=== PATIENT | female | born 1960 | race Caucasian/White ===

== ENCOUNTER 2021-08-24 19:34 | Emergency (ER) | payer BC ==
--- NOTE | 2021-08-24 19:45 | EDM.PDOC ---
ED HPI GENERAL MEDICAL PROBLEM - General Chief Complaint: General Stated Complaint: FAINTED Time Seen by Provider: 08/24/21 19:42 Source of Information: Reports: Patient History Limitations: Reports: No Limitations - History of Present Illness INITIAL COMMENTS - FREE TEXT/NARRATIVE: Patient is a 60-year-old female who presents today for syncope episode. Patient was at work when she told her coworkers that she felt lightheaded and she passed out. Patient denied hitting her head but coworkers advised that she may have bumped her head. She is awake and alert currently in her baseline she denies any pain to her head or neck or any extremities. States that she has been feeling sick for the past few days has been cold-like symptoms but tested negative she has been having decreased p.o. intake and not drinking enough water per the patient. She denies any chest pain abdominal pain vomiting or other complaints. Head Pain Score (Numeric/FACES): 3 - Related Data Allergies Allergy/AdvReac Type Severity Reaction Status Date / Time No Known Allergies Allergy Verified 08/24/21 19:45 Home Meds: Home Meds Omeprazole 20 mg PO DAILY 07/29/16 [History] Valsartan 1 tab PO DAILY 06/11/18 [History] buPROPion HCL [Wellbutrin Xl] 1 tab PO DAILY 06/11/18 [History] amLODIPine [Norvasc] 10 mg PO DAILY 08/24/21 [History] Past Medical History HEENT History: Reports: Impaired Vision, Other (See Below) Other HEENT History: wears glasses Cardiovascular History: Reports: High Cholesterol, Hypertension Gastrointestinal History: Reports: GERD Psychiatric History: Reports: Anxiety, Depression - Past Surgical History GI Surgical History: Reports: EGD Social & Family History - Family History Family Medical History: No Pertinent Family History ED ROS GENERAL - Review of Systems Review Of Systems: See Below Constitutional: Reports: No Symptoms HEENT: Reports: No Symptoms Respiratory: Reports: No Symptoms Cardiovascular: Reports: Syncope Endocrine: Reports: No Symptoms GI/Abdominal: Reports: No Symptoms : Reports: No Symptoms Musculoskeletal: Reports: No Symptoms Skin: Reports: No Symptoms Neurological: Reports: No Symptoms Psychiatric: Reports: No Symptoms Hematologic/Lymphatic: Reports: No Symptoms Immunologic: Reports: No Symptoms ED EXAM, GENERAL - Physical Exam Exam: See Below Exam Limited By: No Limitations General Appearance: Alert, WD/WN, No Apparent Distress Eye Exam: Bilateral Eye: EOMI, PERRL Head: Atraumatic, Normocephalic Respiratory/Chest: No Respiratory Distress, Lungs Clear, Normal Breath Sounds Cardiovascular: Normal Peripheral Pulses, Regular Rate, Rhythm GI/Abdominal: Normal Bowel Sounds, Soft, Non-Tender Extremities: Normal Inspection, Normal Range of Motion, Non-Tender Neurological: Alert, Oriented, CN II-XII Intact, Normal Cognition, Normal Gait #1 Interpretation EKG Date: 08/24/21 Time: 19:38 Rhythm: NSR Rate (Beats/Min): 79 ST-T: Normal Course - Vital Signs Last Recorded V/S: Last Vital Signs Temp 97.2 F 08/24/21 19:47 Pulse 94 08/24/21 21:17 Resp 16 08/24/21 21:17 BP 192/96 H 08/24/21 21:17 Pulse Ox 94 L 08/24/21 21:17 Orthostatic Blood Pressure [ 165/93 Standing] Orthostatic Blood Pressure [ 163/88 Sitting] Orthostatic Blood Pressure [ 164/90 Supine] - Orders/Labs/Meds Orders: Active Orders 24 hr Category Date Time Status Orthostatic Vital Signs [RC] ASDIRECTED Care 08/24/21 19:45 Active Labs: Laboratory Tests 08/24/21 08/24/21 08/24/21 Range/Units 19:40 19:40 20:42 WBC 12.98 H (4.0-11.0) K/uL RBC 5.16 (4.30-5.90) M/uL Hgb 15.6 (12.0-16.0) g/dL Hct 43.8 (36.0-46.0) % MCV 84.9 (80.0-98.0) fL MCH 30.2 (27.0-32.0) pg MCHC 35.6 (31.0-37.0) g/dL RDW Std Deviation 39.7 (28.0-62.0) fl RDW Coeff of Nora 13 (11.0-15.0) % Plt Count 337 (150-400) K/uL MPV 9.10 (7.40-12.00) fL Neut % (Auto) 55.8 (48.0-80.0) % Lymph % (Auto) 35.9 (16.0-40.0) % [place] % (Auto) 6.0 (0.0-15.0) % Eos % (Auto) 2.1 (0.0-7.0) % Baso % (Auto) 0.2 (0.0-1.5) % Neut # (Auto) 7.2 H (1.4-5.7) K/uL Lymph # (Auto) 4.7 H (0.6-2.4) K/uL [place] # (Auto) 0.8 (0.0-0.8) K/uL Eos # (Auto) 0.3 (0.0-0.7) K/uL Baso # (Auto) 0.0 (0.0-0.1) K/uL Nucleated RBC % 0.0 /100WBC Nucleated RBCs # 0 K/uL Sodium 136 (136-145) mmol/L Potassium 3.3 L (3.5-5.1) mmol/L Chloride 98 (98-107) mmol/L Carbon Dioxide 25.2 (21.0-32.0) mmol/L BUN 15 (7.0-18.0) mg/dL Creatinine 1.1 H (0.6-1.0) mg/dL Est Cr Clr Drug Dosing 45.55 mL/min Estimated GFR (MDRD) 50.8 ml/min Glucose 170 H (74-106) mg/dL Calcium 8.9 (8.5-10.1) mg/dL Phosphorus 2.5 L (2.6-4.7) mg/dL Magnesium 1.9 (1.8-2.4) mg/dL Total Bilirubin 1.4 H (0.2-1.0) mg/dL AST 11 L (15-37) IU/L ALT 22 (14-63) IU/L Alkaline Phosphatase 94 (46-116) U/L Creatine Kinase 79 (26-308) U/L Troponin I < 0.050 (0.000-0.056) ng/mL Total Protein 7.3 (6.4-8.2) g/dL Albumin 3.9 (3.4-5.0) g/dL Globulin 3.4 (2.6-4.0) g/dL Albumin/Globulin Ratio 1.1 (0.9-1.6) Lipase 193 (73-393) U/L Urine Color YELLOW Urine Appearance HAZY Urine pH 5.5 (5.0-8.0) Ur Specific [place] >= 1.030 (1.001-1.035) Urine Protein NEGATIVE (NEGATIVE) mg/dL Urine Glucose (UA) NEGATIVE (NEGATIVE) mg/dL Urine Ketones 15 H (NEGATIVE) mg/dL Urine Occult Blood NEGATIVE (NEGATIVE) Urine Nitrite NEGATIVE (NEGATIVE) Urine Bilirubin NEGATIVE (NEGATIVE) Urine Urobilinogen 0.2 (<2.0) EU/dL Ur Leukocyte Esterase TRACE H (NEGATIVE) Urine RBC 0-1 (0-2/HPF) Urine WBC 0-2 (0-5/HPF) Ur Epithelial Cells RARE (NONE-FEW) Urine Bacteria RARE (NEGATIVE) - Re-Assessments/Exams Free Text/Narrative Re-Assessment/Exam: 08/24/21 22:31 Patient EKG labs tropes CT reviewed. Patient remained stable will be discharged to follow-up with her PMD this week. 08/24/21 22:32 This patient was seen during this pandemic due to a bed shortage and no beds being available [place] or nearby [facility] we will have patient follow-up with cardiology tomorrow or her primary care physician. Departure - Departure Time of Disposition: 22:31 Disposition: Home, Self-Care 01 Condition: Good Clinical Impression: Syncope - Discharge Information *PRESCRIPTION DRUG MONITORING PROGRAM REVIEWED*: Not Applicable *COPY OF PRESCRIPTION DRUG MONITORING REPORT IN PATIENT HERBERT: Not Applicable Instructions: Syncope, [id number] Forms: ED Department Discharge Additional Instructions: The following information is given to patients seen in the emergency department who are being discharged to home. This information is to outline your options for follow-up care. We provide all patients seen in our emergency department with a follow-up referral. The need for follow-up, as well as the timing and circumstances, are variable depending upon the specifics of your emergency department visit. If you don't have a primary care physician on staff, we will provide you with a referral. We always advise you to contact your personal physician following an emergency department visit to inform them of the circumstance of the visit and for follow-up with them and/or the need for any referrals to a consulting specialist. The emergency department will also refer you to a specialist when appropriate. This referral assures that you have the opportunity for follow-up care with a specialist. All of these measure are taken in an effort to provide you with optimal care, which includes your follow-up. Under all circumstances we always encourage you to contact your private physic tina who remains a resource for coordinating your care. When calling for follow- up care, please make the office aware that this follow-up is from your recent emergency room visit. If for any reason you are refused follow-up, please contact the [facility] Emergency Department at and asked to speak to the emergency department charge nurse. Please follow up with your primary care physician. If you do not have a primary care physician, see below: [facility] [address] [place] [address] [facility] [address] [place] [address] Card[facility] at [facility] [address] [place] [address] You were seen today after passing out at work today. We did a CT scan of your head those were normal limits also EKG and lab work as well. We are unsure what happened we want you to follow-up with our cardiology department or your primary care physician as you may need a Holter monitor and further work-up. If you have any other concerning signs or symptom please return to ED. Sepsis Event Note (ED) - Focused Exam Vital Signs: Vital Signs Temp Pulse Resp BP Pulse Ox 08/24/21 21:17 94 16 192/96 H 94 L 08/24/21 19:47 97.2 F 83 16 175/102 H 98 - My Orders Last 24 Hours: My Active Orders 08/24/21 19:45 Orthostatic Vital Signs [RC] ASDIRECTED - Assessment/Plan Last 24 Hours: My Active Orders 08/24/21 19:45 Orthostatic Vital Signs [RC] ASDIRECTED Plan: Patient is a 60-year-old female who presents today for syncope episode at work. She denies any chest pain headaches or other symptoms. She did mention she has felt lightheaded and she has not been drinking much due to her having some cold-like symptoms. Will obtain EKG labs troponins reassess.
[2021-08-24 20:33] LABS: BLOOD UREA NITROGEN,BUN 15 mg/dL (7.0-18.0); CARBON DIOXIDE,CO2 25.2 mmol/L (21.0-32.0); CHLORIDE,CL 98 mmol/L (98-107); GLUCOSE RANDOM 170 mg/dL (74-106); LIPASE 193 U/L (73-393); POTASSIUM,K 3.3 mmol/L (3.5-5.1); SODIUM,NA 136 mmol/L (136-145)
--- NOTE | 2021-08-24 20:38 | CR ---
INDICATION: Syncope TECHNIQUE: Single view chest. FINDINGS: The lungs are clear. The heart, mediastinum and pulmonary vessels are of normal size. There is no evidence of pleural disease. IMPRESSION: Negative chest. Dictated by Shell Tompkins MD @ 08/24/2021 8:35:46 PM (Electronically Signed)
--- NOTE | 2021-08-24 21:52 | CT ---
DATE: 08/24/2021. CLINICAL HISTORY: Fall, struck head. TECHNIQUE: Standard helical CT image acquisition of the brain was performed. COMPARISON: None available. FINDINGS: There is no intracranial hemorrhage. No extra-axial collection, mass effect, or midline shift. [place]-white matter differentiation is preserved. Ventricles are normal in size and morphology for patient age. No displaced calvarial fracture. The orbits are unremarkable. The paranasal sinuses are unremarkable, noting a hypoplastic left maxillary sinus. The mastoid air cells are unremarkable. The soft tissues are unremarkable. IMPRESSION: No CT evidence of acute intracranial abnormality or closed-head injury. Please note that all CT scans at this facility use dose modulation, iterative reconstruction, and/or weight-based dosing when appropriate to reduce radiation dose to as low as reasonably achievable. Dictated by Derrick Bolivar MD @ 08/24/2021 9:48:44 PM (Electronically Signed)
[2021-08-24 22:52] VITALS: BP 187/100; PULSE 99
== END 2021-08-24 22:52 | disposition home or self-care (01) ==
LOC: MW.ED 19:34
DX: R55 Syncope and collapse (principal); K21.9 Gastro-esophageal reflux disease without esophagitis; E78.00 Pure hypercholesterolemia, unspecified; I10 Essential (primary) hypertension; Z79.899 Other long term (current) drug therapy
CPT/HCPCS: 36415; 70450; 70450-26; 71045; 71045-26; 80053; 81001; 82550; 83690; 83735; 84100; 84484; 85025; 93005; 99284-25

== ENCOUNTER 2022-02-15 22:49 | Emergency (ER) | payer BC, OTHER ==
[2022-02-16 00:43] LABS: CARBON DIOXIDE,CO2 26.4 mmol/L (21.0-32.0); POTASSIUM,K 3.9 mmol/L (3.5-5.1)
[2022-02-16 00:56] VITALS: BP 163/94; PULSE 84
== END 2022-02-16 01:00 | disposition home or self-care (01) ==
LOC: MW.ED 22:49
DX: I10 Essential (primary) hypertension (principal); E78.00 Pure hypercholesterolemia, unspecified; K21.9 Gastro-esophageal reflux disease without esophagitis; Z79.899 Other long term (current) drug therapy
CPT/HCPCS: 36415; 80048; 84484; 85025; 93005; 93010; 99282; 99284-25